=== PATIENT | female | born 1945 | race Hispanic/Latino ===

== ENCOUNTER 2021-07-11 07:16 | Day surgery (SDC) | payer MEDICARE ==
[2021-07-11] MEDS ORDERED: ASPIRIN EC 325 MG TAB PO SCH (07:30)
[2021-07-11 07:50] LABS: Basophils % (Auto) 0.4 % (0.0-1.8); Eosinophils # (Auto) 0.1 K/mm3 (0.0-0.4); Eosinophils % (Auto) 2.6 % (0.0-4.3); Hematocrit 31.7 % (30.3-42.9); Hemoglobin 10.2 gm/dl (10.1-14.3); Lymphocytes # (Auto) 1.6 K/mm3 (1.2-5.4); Mean Corpuscular HGB Conc 32 % (30-34); Mean Corpuscular Volume 89 fl (79-97); Monocytes # (Auto) 0.5 K/mm3 (0.0-0.8); Monocytes % (Auto) 10.8 % (0.0-7.3); Platelet Count 195 K/mm3 (140-440); Red Blood Count 3.55 M/mm3 (3.65-5.03); Red Cell Distribution Width 13.9 % (13.2-15.2)
[2021-07-11] MEDS ORDERED: SODIUM CHLORIDE 0.9% 500 ML 500 ML IV SCH (08:00)
[2021-07-11 08:02] LABS: Calcium 9.3 mg/dL (8.4-10.2)
[2021-07-11 08:07] LABS: INR 0.99 (0.87-1.13)
[2021-07-11] MEDS ORDERED: fentaNYL 100 MCG/2 ML INJ ONE (09:14)
[2021-07-11] MEDS ORDERED: VERAPAMIL 5 MG/2 ML INJ ONE (09:14)
[2021-07-11] MEDS ORDERED: LIDOCAINE (2%) 20 MG/1 ML VIAL 20 ML MDV INFILTRATI ONE ×2 (09:14→09:37)
[2021-07-11] MEDS ORDERED: HEPARIN/NS 5000 UNIT/500ML 1,000 ML IR ONE (09:14)
[2021-07-11] MEDS ORDERED: MIDAZOLAM 2 MG/2 ML INJ ONE (09:14)
[2021-07-11] MEDS ORDERED: HEPARIN 10,000 UNITS/10 ML VIAL ONE (09:14)
[2021-07-11] MEDS ORDERED: NITROGLYCERIN SYRINGE 3 ML ONE (09:15)
[2021-07-11] MEDS ORDERED: fentaNYL 100 MCG/2 ML INJ IV ONE (09:35)
[2021-07-11] MEDS ORDERED: MIDAZOLAM 2 MG/2 ML INJ IV ONE (09:35)
[2021-07-11] MEDS ORDERED: HEPARIN 10,000 UNITS/10 ML VIAL ART-SHEATH ONE (09:38)
[2021-07-11] MEDS ORDERED: NITROGLYCERIN 600 MCG/3 ML SYRINGE ART-SHEATH ONE (09:38)
--- NOTE | 2021-07-11 10:07 | Short Stay Summary ---
Short Stay Documentation Date of service: 07/11/21 - Allergies and Medications Current Medications: Allergies codeine Allergy (Verified 07/11/21 07:22) Unknown Active Medications Aspirin (Aspirin Ec 325 Mg Tab) 325 mg PO ONCE@0730 LATOSHA Stop: 07/11/21 17:00 Last Admin: 07/11/21 07:50 Dose: 325 mg Documented by: Sodium Chloride (Nacl 0.9% 500 Ml) 500 mls @ 50 mls/hr IV DIRECT LATOSHA Stop: 07/11/21 17:59 Last Admin: 07/11/21 08:12 Dose: 50 mls/hr Documented by: - Physical exam Integumentary: other (dressing clean dry and intact. No bleeding or hematoma) - Brief post op/procedure progress note Date of procedure: 07/11/21 Post-op diagnosis: other (aortic stenosis) Anesthesia: local Estimated blood loss: minimal - Disposition Condition at discharge: Good Disposition: 01 HOME / SELF CARE / HOMELESS Short Stay Discharge Plan Activity: advance as tolerated Diet: low fat, low cholesterol, low salt Wound: keep clean and dry, per your surgeon's advice Follow up with: ANASTASIA FRANKEL MD [Primary Care Provider] - 7 Days KIESHA SHARMA MD [Staff Physician] - 08/08/21 10:45 am (Patient should follow up with Dr. Sharma, [facility], on 08/08/2021-at 10:45 AM at our [place] location. Phone #[phone])
--- NOTE | 2021-07-11 10:52 | Cardiac Catherization Report ---
DATE OF PROCEDURE: 07/11/2021 LEFT HEART CATHETERIZATION REFERRING PHYSICIAN: Dr. Anahi Sharma. INDICATIONS FOR PROCEDURE: The patient is a very pleasant 75-year-old female, recently had echocardiogram, which revealed a questionable severe . She is referred for left heart catheterization. Risks, benefits, potential alternatives explained at length prior to obtaining informed consent. PROCEDURE IN DETAIL: The patient was brought to the brick and blocker aid labor in a postabsorptive state. Prepped and draped in sterile fashion. An 8 mL of 2% lidocaine used to anesthetize the right wrist. A standard 6-Faroese hydrophilic sheath used to cannulate the right radial artery via modified Seldinger technique. All exchanges performed to exchange a J-tip guidewire. JL3.5 catheter used to engage the left main. No dampening or ventricularization. Cineangiography performed in all projections. JR4 catheter used to cross the aortic valve under fluoroscopic guidance. Left ventriculography from the PIERRE, TOGOLESE projections via hand injections, catheter flushed. Manual pullback performed with continuous pressure monitoring. Catheter used to engage the right coronary. No dampening or ventricularization. Cineangiography performed in all projections. DATA: Aortic pressure is 163/80, LV pressure is 190 with EDP of 16, peak gradient is approximately 37 mmHg, mean gradient is approximately 27 mmHg. CORONARY ANATOMY: This is a right dominant system. Left main is large, no significant disease, bifurcates into left anterior descending, left circumflex. LAD is a moderate-sized vessel, courses to anterior intergroove, wraps around the apex, no significant disease in LAD. There is moderate diffuse small vessel disease in the first diagonal 60-70% stenosis with DOROTHY 3 flow branch vessel disease. Left circumflex without significant disease. Right coronary with scattered luminal irregularities, but no significant disease. I directly supervised the administration of moderate sedation with fentanyl and Versed from 9:35 a.m. to 9:58 a.m. No immediate complications. CONCLUSIONS: 1. Moderate aortic valve stenosis with udcj-hi-psea gradient of some 36 mmHg and mean gradient of some 26 mmHg. 2. No main branch vessel disease with 60-70% stenosis in a first diagonal, small vessel medical management. 3. Normal left ventricular function, estimated ejection fraction 55-60%. 4. Normal LVEDP. At this point, I believe she has moderate aortic stenosis with a mean gradient of approximately 26 mmHg. We will continue to follow this medical management, risk factor modification. DOROTHY 3 flow throughout the coronary tree. Follow up with Dr. Anahi Sharma in the office. Standard radial care. Continue guideline-directed optimal medical therapy. Results of procedure were explained in length to the patient and family. All questions were addressed. TID: [id number] RECEIPT: [id number] DAVID/FLAVIO/ALEYDA
[2021-07-11 12:13] VITALS: BP 164/89
--- NOTE | 2021-07-11 18:41 | Electrocardiograph Report ---
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
== END 2021-07-11 13:15 | disposition home or self-care (01) ==
LOC: CATHLABREC 07:16
PROVIDERS: ATTEND Internal Medicine
DX: I35.0 Nonrheumatic aortic (valve) stenosis (principal); I10 Essential (primary) hypertension; E78.00 Pure hypercholesterolemia, unspecified; Z79.899 Other long term (current) drug therapy; Z98.890 Other specified postprocedural states; Z90.710 Acquired absence of both cervix and uterus; Z88.5 Allergy status to narcotic agent; Z79.01 Long term (current) use of anticoagulants
CPT/HCPCS: 36415; 80048; 85025; 85610; 85730; 93005; 93458; 99156; 99157; C1894; J1644; J1815; J2250; J3010; J3490; J7040; Q9967